=== PATIENT | female | born 1990 | race Two or more races ===

== ENCOUNTER 2017-11-13 08:14 | Emergency (ER) | payer OTHER ==
[~2017-11-13] VITALS: Ht 154.9 cm; Wt 68.9 kg
[2017-11-13 09:12] VITALS: BP 112/53
[2017-11-13 09:35] LABS: BILIRUBIN,URINE NEGATIVE (NEG); CLARITY,URINE CLEAR; COLOR,URINE YELLOW; NITRITE,URINE NEGATIVE (NEG); PROTEIN,URINE NEGATIVE (NEG-TRACE); UROBILINOGEN,URINE 0.2 mg/dL (0.2 mg/dL)
[2017-11-13 09:39] LABS: BACTERIA,URINE FEW /HPF (0-FEW); RBC,URINE 0 /HPF (0-2)
[2017-11-13 09:40] LABS: AMORPHOUS SEDIMENT,UR PRESENT /HPF
--- NOTE | 2017-11-13 09:55 | PHYS DOC ---
Past Medical History Past Medical History: No Pertinent History Past Surgical History: No Surgical History Alcohol Use: None Drug Use: None Adult General Chief Complaint Chief Complaint: VAGINAL BLEEDING HPI HPI Patient is a 27 year old female 16 weeks presenting with vaginal spotting. She' s had it she said she saw a few spots of blood on her underwear today she did not even have to use a pad for G had some mild abdominal cramping which is slowly resolving. She is worried about the baby and wanted to be checked out no fever no pain with urination no other symptoms. Review of Systems Review of Systems Respiratory: Denies cough or shortness of breath [] : Denies dysuria or hematuria [] Musculoskeletal: Denies back pain or joint pain [] All other systems were reviewed and found to be within normal limits, except as documented in this note. Allergies Allergies Allergies Coded Allergies Type Severity Reaction Last Updated Verified No Known Drug Allergies 03/26/13 No Physical Exam Physical Exam Constitutional: Well developed, well nourished, no acute distress, non-toxic appearance. [] HENT: Normocephalic, atraumatic, bilateral external ears normal, oropharynx moist, no oral exudates, nose normal. [] Eyes: PERRLA, EOMI, conjunctiva normal, no discharge. [] Neck: Normal range of motion, no tenderness, supple, no stridor. [] Pulmonary: Normal respiratory effort no increased work of breathing no obvious chest wall trauma Abdomen: Bowel sounds normal, soft, slightly gravid but no abdominal tenderness , no masses, no pulsatile masses. [] Skin: Warm, dry, no erythema, no rash. [] Back: No tenderness, no CVA tenderness. [] Extremities: No tenderness, no cyanosis, no clubbing, ROM intact, no edema. [] Neurologic: Alert and oriented X 3, normal motor function, normal sensory function, no focal deficits noted. [] Psychologic: Affect normal, judgement normal, mood normal. [] Current Patient Data Vital Signs Vital Signs Date Time Temp Pulse Resp B/P (MAP) Pulse Ox O2 Delivery O2 Flow Rate FiO2 11/13/17 09:12 54 14 112/53 (72) 100 Room Air 11/13/17 08:21 98.7 98.7 Lab Values Laboratory Tests Test 11/13/17 09:30 Urine Collection Type Unknown Urine Color Yellow Urine Clarity Clear Urine pH 8.0 Urine Specific [place] 1.020 Urine Protein Negative mg/dL (NEG-TRACE) Urine Glucose (UA) Negative mg/dL (NEG) Urine Ketones (Stick) Negative mg/dL (NEG) Urine Blood Large (NEG) Urine Nitrite Negative (NEG) Urine Bilirubin Negative (NEG) Urine Urobilinogen Dipstick 0.2 mg/dL (0.2 mg/dL) Urine Leukocyte Esterase Small (NEG) Urine RBC 0 /HPF (0-2) Urine WBC 1-4 /HPF (0-4) Urine Amorphous Sediment Present /HPF Urine Bacteria Few /HPF (0-FEW) EKG EKG [] Radiology/Procedures Radiology/Procedures [] Course & Med Decision Making Course & Med Decision Making Bedside ultrasound performed shows positive IUP with good movement and heart rate in the 140s Plan miscarriage 16 weeks good bedside ultrasound very small amount of bleeding only I do not feel that a pelvic exam is going to help us at this time patient was reassured urinalysis likely just some contamination patient was advised to follow with [facility] for any persistent symptoms in the next few days. Pertinent Labs and Imaging studies reviewed. (See chart for details) Dragon Disclaimer Dragon Disclaimer This electronic medical record was generated, in whole or in part, using a voice recognition dictation system. Departure Departure Impression: Primary Impression: Vaginal bleeding during Disposition: 01 HOME, SELF-CARE Condition: IMPROVED Patient Instructions: Vaginal Bleeding During , First Trimester THEO MEJIA MD Nov 13, 2017 09:55
== END 2017-11-13 10:15 | disposition home or self-care (01) ==
LOC: ER 08:14
DX: O20.8 Other hemorrhage in early pregnancy (principal); R10.9 Unspecified abdominal pain; Z3A.16 16 weeks gestation of pregnancy
CPT/HCPCS: 81001; 87086; 99284